=== PATIENT | female | born 1960 | race Caucasian/White ===

== ENCOUNTER 2016-10-10 10:35 | Day surgery (SDC) | payer OTHER ==
[~2016-10-10 10:35] MED LIST: DIPRIVAN 200 MG/20 ML IV ONE; Kenalog-40 IM ONE; Ketamine HCl 50 MG/ML IJ ONE; Lactated Ringers 1,000 ML IV SCH; Sensorcaine 0.25% 10 ML IJ ONE; Xylocaine 1% Vial 30 ML PF IJ ONE
[2016-10-10] MEDS ORDERED: Lactated Ringers 1,000 ML IV ONE (10:50)
[2016-10-10] MEDS ORDERED: KEFZOL 1 GM/50 ML PREMIX** 50 ML IV ONE (12:55)
[2016-10-10 13:11] VITALS: BP 111/77; PULSE 81; O2SAT 93
--- NOTE | 2016-10-10 15:08 | XRAY ---
Indication: Left L2-L5 RFA. Intraoperative fluoroscopy was provided for 30 seconds. 2 digital spot images submitted for interpretation demonstrates 4 posterior spinal needles with the tips projecting over the expected course of the left L2-L5 nerve roots. Correlate with intraoperative findings/report.
== END 2016-10-10 15:08 | disposition home or self-care (01) ==
LOC: SDC-PAIN 10:35
PROVIDERS: ATTEND Pain Medicine Interventional Pain Medicine
DX: M47.816 Spondylosis without myelopathy or radiculopathy, lumbar region (principal); M54.5 Low back pain; M46.1 Sacroiliitis, not elsewhere classified; Z79.891 Long term (current) use of opiate analgesic
CPT/HCPCS: 01936; 64635; 64636; 72100; 77003; J0690; J2001; J2704; J3301

== ENCOUNTER 2018-07-16 11:50 | Day surgery (SDC) | payer OTHER ==
[2018-07-16] MEDS ORDERED: Lactated Ringers 1,000 ML IV ONE (14:53)
== END 2018-07-16 14:06 | disposition home or self-care (01) ==
LOC: SDC-PAIN 11:50
PROVIDERS: ATTEND Psychiatry & Neurology Pain Medicine
DX: M46.1 Sacroiliitis, not elsewhere classified (principal); Z53.09 Procedure and treatment not carried out because of other contraindication